=== PATIENT | female | born 1955 | race Caucasian/White ===

== ENCOUNTER 2021-02-21 08:10 | Outpatient (CLI) | payer MEDICARE, SELFPAY ==
--- NOTE | 2021-02-21 08:17 | MM_ITS ---
WS: [id number] Bilateral screening digital mammogram, 02/21/2021 Clinical Data: SCREENING Comparison: 07/21/2019, 12/07/2016. Findings: The breast parenchymal pattern shows fibroglandular tissue No spiculated masses or clustered calcific ations are seen. There are no secondary signs of carcinoma. Bilateral augmentation mammoplasty implan ts are intact. MM/[id number] Impression: 1. Negative bilateral mammogram unchanged. 2. Recommend annual screening mammograms. BIRADS: 2-Benign FOLLOW UP: 1 Year Follow-up The CAD inventory checker was used.
== END 2021-02-21 08:11 | disposition home or self-care (01) ==
LOC: RADSHAW 08:16
PROVIDERS: Family Provider Nurse Practitioner Family; PCP Nurse Practitioner Family; Visit Provider Nurse Practitioner Family
DX: Z12.31 Encounter for screening mammogram for malignant neoplasm of breast (principal)
CPT/HCPCS: 77067

== ENCOUNTER 2021-06-18 05:39 | Outpatient (CLI) | payer MEDICARE, SELFPAY ==
[2021-06-18 05:58] VITALS: BP 146/87; PULSE 75; RESP 19; O2SAT 97; BMI 28.1
[2021-06-18 06:40] VITALS: BP 159/87; PULSE 81; RESP 22; O2SAT 97
[2021-06-18 07:53] VITALS: BP 127/77; PULSE 76; RESP 19; O2SAT 95
== END 2021-06-18 05:40 | disposition home or self-care (01) ==
LOC: ER 05:42
PROVIDERS: PCP Nurse Practitioner Family; Visit Provider Internal Medicine
DX: U07.1 COVID-19 (principal)
CPT/HCPCS: 96365

== ENCOUNTER 2022-03-19 11:06 | Outpatient (CLI) | payer MEDICARE, MEDICAID, SELFPAY ==
--- NOTE | 2022-03-19 11:20 | XRR_ITS ---
PROCEDURE INFORMATION: Exam: XR Chest Exam date and time: 03/19/2022 11:26 AM Age: 66 years old Clinical indication: Prior surgery; Surgery type: Breast implants; Patient HX: --cough for 3 weeks - dry cough, HX of bronchitis TECHNIQUE: Imaging protocol: XR of the chest. Views: 2 views. COMPARISON: CR Chest 1 [place] [id number] 01/11/2017 12:16 PM FINDINGS: Lungs: There is mild platelike atelectasis in the left lung. Otherwise lungs are clear. Pleural spaces: Unremarkable. No pleural effusion. No pneumothorax. Heart/Mediastinum: Unremarkable. No cardiomegaly. Bones/joints: Unremarkable. XR/XR chest 2V* [id number] IMPRESSION: Mild platelike atelectasis in the left lung. No other acute abnormality.
== END 2022-03-19 11:07 | disposition home or self-care (01) ==
LOC: RAD 11:12
PROVIDERS: PCP Nurse Practitioner Family; Visit Provider Nurse Practitioner Family
DX: R05.9 Cough, unspecified (principal); J98.11 Atelectasis
CPT/HCPCS: 71046

== ENCOUNTER 2022-07-24 08:40 | Outpatient (CLI) | payer MEDICARE, MEDICAID, SELFPAY ==
--- NOTE | 2022-07-24 08:45 | MM_ITS ---
WS: [id number] DIAGNOSTIC BILATERAL DIGITAL BREAST TOMOSYNTHESIS MAMMOGRAPHY WITH Daiana views and CAD LEFT breast ultrasound, limited. HISTORY: LT BREAST LUMP x 2 COMPARISON: 02/21/2021 and 07/21/2019 TECHNIQUE: Bilateral implant displacement views craniocaudad, mediolateral oblique, and mediolateral views are submitted with tomosynthesis and SM. Spot compression LEFT CC. Computer aided detection uti lized. Breast composition: There are scattered areas of fibroglandular density. Small contracted partially c alcified implants. Palpable markers 11:00 and 12:00 with no underlying abnormality identified. There are a few benign calcifications in each breast. No areas of distortion. LEFT breast ultrasound, limited. Ultrasound directed to 11 and 12:00 by the patient in the palpable areas. No mass or underlying abnor mality. No cystic or solid changes or distortion. MM/[place] [id number] IMPRESSION: BI-RADS: 2-Benign FOLLOW UP: 1 Year Follow-up
== END 2022-07-24 08:41 | disposition home or self-care (01) ==
LOC: RAD 08:40
PROVIDERS: PCP Nurse Practitioner Family; Visit Provider Nurse Practitioner Family
DX: N63.20 Unspecified lump in the left breast, unspecified quadrant (principal)
CPT/HCPCS: 76642; 77062

== ENCOUNTER 2023-05-20 14:14 | Outpatient (CLI) | payer MEDICARE, MEDICAID, SELFPAY ==
--- NOTE | 2023-05-20 14:35 | XRR_ITS ---
PROCEDURE INFORMATION: Exam: XR Right Femur Exam date and time: 05/20/2023 2:37 PM Age: 67 years old Clinical indication: Pain; Thigh; Right; Additional info: Leg pain, right TECHNIQUE: Imaging protocol: Radiologic exam of the right femur. Views: 2 views. COMPARISON: No relevant prior studies available. FINDINGS: Bones/joints: Unremarkable. No acute fracture. Soft tissues: Unremarkable. XR/XR femur RT min 2V* [id number] IMPRESSION: No acute findings.
== END 2023-05-20 14:15 | disposition home or self-care (01) ==
LOC: RAD 14:23
PROVIDERS: PCP Nurse Practitioner Family; Visit Provider Nurse Practitioner Family
DX: M79.604 Pain in right leg (principal)
CPT/HCPCS: 73552

== ENCOUNTER 2024-02-16 14:09 | Emergency (ER) | payer MEDICARE, SELFPAY ==
[2024-02-16] VITALS (48 sets, daily range): BP systolic 142–214; BP diastolic 70–104; PULSE 56–72; RESP 14–28; TEMP 36.6; O2SAT 85–100; BMI 27.8
--- NOTE | 2024-02-16 14:11 | XR_ITS ---
WS: [id number] Examination: XR chest 1V portable [id number] Reason for Exam: cp Date: February 16, 2024 Comparison: March 19, 2022 Findings: The heart is not grossly enlarged. There is no pulmonary edema. Increased markings at the bases are again noted. This may represent scarring. Impression: Minimal increased markings at the bases are again noted. This may represent scar There is no failure.
--- NOTE | 2024-02-16 14:12 | ECG_ITS ---
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 Measurements Intervals [place] Rate: 67 P: 56 CA: 159 QRS: 11 QRSD: 84 T: 30 QT: 406 QTc: 431 Interpretive Statements SINUS RHYTHM LOW QRS VOLTAGE IN PRECORDIAL LEADS [QRS DEFLECTION < 1.0 mV IN CHEST LEADS] Compared to ECG 01/11/2017 12:01:23 No significant changes Electronically Signed On 02-16-2024 15:25:50 CDT by Mumtaz Villar M.D. [id number]
--- NOTE | 2024-02-16 14:23 | ED_ITS ---
Documented by User: Boni Cuevas DO 02/18/24 06:07 HPI - Chest Pain 2 General: Chief Complaint: Chest Pain Stated Complaint: dr barrera, on and off chest pain Time Seen by Provider: 02/16/24 14:20 Source: patient Mode of arrival: ambulatory History of Present Illness: 68-year-old female presents emergency ro om complaining of intermittent episodes of blood pressure elevation. She will get chest discomfort associated with this as well as scotoma. They will last for about 30 minutes at a time resolved spontaneously she has not done anything anything that aggravates or relieves it. She is on Zetia for triglycerides. She has no known history of coronary artery disease she is not currently having chest pain at this time. Patient presents to the ER with 2 episodes of chest pain in the last couple days and elevation in her blood pressure. This pain lasted for about 30 minutes she took an 81 mg aspirin and times then the pain away on its own. Patient went to her PCPs office earlier today for an evaluation and they do not take her insurance anymore so they sent her over here. Patient denies chest pain at this time. MD complaint: chest pain Timing of current episode: episodic Prior episodes: Yes Pain location: substernal and epigastric Pain radiation: none Severity: mild Quality: tightness and aching Relieving factors: nothing Exacerbating factors: nothing Associated symptoms: Deny abdominal pain, diaphoresis, dyspnea, fever(s), leg edema, nausea, palpitations, sense of impending doom, syncope or vomiting Treatment prior to arrival: aspirin Review of Systems 2 Const: Denies: fever(s), chills or diaphoresis Card: Reports: chest pain; Denies: palpitations, edema, swelling of feet/ankles or syncope Resp: Denies: dyspnea GI: Denies: abdominal pain, nausea or vomiting : Denies: dysuria, urinary frequency or urinary urgency Musc: Denies: neck pain or back pain Skin/Breast: Denies: rash Physical Exam 2 Const: COMMON NORMALS: no acute distress GENERAL APPEARANCE: cooperative and comfortable ORIENTATION/CONSCIOUSNESS: Yes awake, Yes oriented to person, Yes oriented to place and Yes oriented to time HENMT: COMMON NORMALS: normocephalic, atraumatic and hearing grossly normal bilaterally HEAD & SCALP: normocephalic and atraumatic Resp: COMMON NORMALS: normal respiratory effort, No retractions, No use of accessory muscles and clear to auscultation bilaterally AUSCULTATION: clear to auscultation bilaterally Cardio: COMMON NORMALS: regular rate, regular rhythm and No murmurs present (Cardio) RATE: regular rate RHYTHM: regular rhythm GI: COMMON NORMALS: Soft to palpation and No hepatosplenomegaly present A USCULTATION: Yes normoactive bowel sounds PALPATION: Yes Soft to palpation, No Tenderness to palpation present (GI), No Guarding due to palpation present (GI) and Yes No hepatosplenomegaly present Extremity: COMMON NORMALS: normal to inspection, capillary refill normal, no clubbing, cyanosis or edema, no calf tenderness and no pedal edema Neuro: SENSORIUM/ORIENTATION: Yes oriented to person, Yes oriented to place and Yes oriented to time Skin: COMMON NORMALS: no rashes or lesions noted GENERAL SKIN EXAM: no rashes or lesions noted Course 2 Vital Signs: Vital signs: Vital Signs Temperature 97.9 F 02/16/24 14:13 Pulse Rate 72 02/16/24 18:35 Respiratory Rate 17 02/16/24 18:35 Blood Pressure 142/80 02/16/24 18:40 Pulse Oximetry 95 02/16/24 18:35 Oxygen Delivery Me thod Room Air 02/16/24 18:35 MDM - Chest Pain Medical Decision Making Initial EKG shows normal sinus rhythm a lot of artifact at the baseline no acute ST changes rate is normal at 87. Care signed out to Dr. Alexander at change of shift. See final notes for diagnosis and disposition. Labs pending Care transferred at shift change. Lab work reviewed EKGs reviewed discussed with the patient. Patient will be discharged and set up for an outpatient stress test as well as started on Imdur. Patient will follow-up with her primary care practitioner within next 7 to 10 days for further evaluation and treatment as needed. Medical Records I reviewed the patient's medical records. Lab Data I reviewed the patient's lab results. 02/16/24 14:44 02/16/24 14:44 Laboratory Results WBC 8.31 10^3/uL (3.29-11.43) 02/16/24 14:44 RBC 4.37 10^6/uL (3.85-5.65) 02/16/24 14:44 Hgb 13.90 g/dL (11.27-16.99) 02/16/24 14:44 Hct 42.0 % (36-47) 02/16/24 14:44 MCV 96.1 fl (85-98) 02/16/24 14:44 MCH 31.8 pg (27-33) 02/16/24 14:44 MCHC 33.1 g/dL (30-55) 02/16/24 14:44 RDW 15.1 % (12.1-15.1) 02/16/24 14:44 Plt Count 383 10^3/cmm (157-399) 02/16/24 14:44 MPV 9.9 fL (7.4-10.4) 02/16/24 14:44 Neut % (Auto) 61.4 % 02/16/24 14:44 Lymph % (Auto) 28.6 % 02/16/24 14:44 [place] % (Auto) 6.6 % 02/16/24 14:44 Eos % (Auto) 2.5 % 02/16/24 14:44 Baso % (Auto) 0.7 % 02/16/24 14:44 Neut # (Auto) 5.09 10^3/uL (1.8-7.7) 02/16/24 14:44 Lymph # (Auto) 2.4 10^3/uL (0.8-4.8) 02/16/24 14:44 [place] # (Auto) 0.6 10^3/uL (0.2-0.9) 02/16/24 14:44 Eos # (Auto) 0.2 10^3/uL (0.0-0.8) 02/16/24 14:44 Baso # (Auto) 0.1 10^3/uL (0.0-0.1) 02/16/24 14:44 Nucleated RBC % (auto) 0 % 02/16/24 14:44 Nucleated RBCs # 0.0 /100WBC 02/16/24 14:44 PT 12.70 SECONDS (12.1-14.9) 02/16/24 14:44 INR 0.93 (0.8-1.2) 02/16/24 14:44 D-Dimer 0.51 ug/mLFEU (0-0.59) 02/16/24 14:44 Sodium 142 mmol/L (136-145) 02/16/24 14:44 Potassium 4.3 mmol/L (3.5-5.1) 02/16/24 14:44 Chloride 106 mmol/L (98-107) 02/16/24 14:44 Carbon Dioxide 24 mmol/L (22-29) 02/16/24 14:44 Anion Gap 16.3 (5-19) 02/16/24 14:44 BUN 14 mg/dL (8-23) 02/16/24 14:44 Creatinine 0.7 mg/dL (0.5-0.9) 02/16/24 14:44 GFR Calculation 82.7 mL/min (90-130) L 02/16/24 14:44 Glucose 101 mg/dL (65-115) 02/16/24 14:44 Calculated Osmolality 295 mOsm/kg (285-295) 02/16/24 14:44 Calcium 10.1 mg/dL (8.5-10.5) 02/16/24 14:44 Total Bilirubin 0.4 mg/dL (0.15-1.2) 02/16/24 14:44 AST 17 U/L (0-32) 02/16/24 14:44 ALT 8 U/L (0-33) 02/16/24 14:44 Alkaline Phosphatase 60 U/L (35-105) 02/16/24 14:44 Troponin T Baseline 9 ng/L (0-10) 02/16/24 14:44 Troponin T 120 Minute 6.00 ng/L (0-10) 02/16/24 16:50 Delta Troponin T -3.00 ABS# (0-10) L 02/16/24 16:50 Total Protein 6.9 g/dL (6.6-8.7) 02/16/24 14:44 Albumin 4.6 g/dL (3.5-5.2) 02/16/24 14:44 Globulin 2.3 g/dL (1.3-4.6) 02/16/24 14:44 Lipase 18 U/L (13-60) 02/16/24 14:44 Discharge Plan Discharge Patient Disposition: Home Clinical Impression: Chest pain Qualifiers: Chest pain type: unspecified Qualified Code(s): R07.9 - Chest pain, unspecified Hypertension Qualifiers: Hypertension type: unspecified Qualified Code(s): I10 - Essential (primary) hypertension Condition: Stable Prescriptions: New isosorbide mononitrate 30 mg tablet extended release 24 hr 30 mg PO DAILY Qty: 30 0RF No Action oxybutynin chloride 5 mg tablet 5 mg PO TID hydroxyzine HCl 10 mg tablet 10 mg PO TID PRN (Reason: Anxiety) ezetimibe 10 mg tablet 10 mg PO DAILY fenofibrate nanocrystallized 145 mg tablet 145 mg PO DAILY vilazodone 10 mg tablet 10 mg PO DAILY vilazodone 20 mg tablet 20 mg PO DAILY Trelegy Ellipta 100-62.5-25 mcg blister with device 1 ea INHALATION PRN PRN (Reason: Shortness Of Breath Or Wheezing) Vitamin D3 25 mcg (1,000 unit) Tablet 25 mcg PO DAILY Discharge Orders: Discharge ED (Routine); Ordered 02/16/24 Ordered By: Morales lAexander Referrals: Patricia Rico MANAGER LAN [Primary Care Provider] - 1 week Patient Instructions: Chest Pain (ED), Hypertension (ED) Activity Restrictions/Additional Instructions: Your lab work come back normal. You will be set up for an outpatient stress test for further evaluation of your heart. You will be placed on Imdur. Please follow-up with your family practitioner in the next 7 to 10 days for further evaluation and treatment as needed. If chest pain returns please feel free to return to the ER. Coding Level of Care Code ED Hand Lens Polisher for Chg Fwd Documented by User: Morales Alexander DO 02/16/24 19:30 HPI - Chest Pain 2 General: Chief Complaint: Chest Pain Stated Complaint: dr barrera, on and off chest pain Time Seen by Provider: 02/16/24 14:20 History of Present Illness: Patient presents to the ER with 2 episodes of chest pain in the last couple days and elevation in her blood pressure. This pain lasted for about 30 minutes she took an 81 mg aspirin and times then the pain away on its own. Patient went to her PCPs office earlier today for an evaluation and they do not take her insurance anymore so they sent her over here. Patient denies chest pain at this time. Course 2 Vital Signs: Vital signs: Vital Signs Temperature 97.9 F 02/16/24 14:13 Pulse Rate 72 02/16/24 18:35 Respiratory Rate 17 02/16/24 18:35 Blood Pressure 142/80 02/16/24 18:40 Pulse Oximetry 95 02/16/24 18:35 Oxygen Delivery Me thod Room Air 02/16/24 18:35 MDM - Chest Pain Medical Decision Making Care transferred at shift change. Lab work reviewed EKGs reviewed discussed with the patient. Patient will be discharged and set up for an outpatient stress test as well as started on Imdur. Patient will follow-up with her primary care practitioner within next 7 to 10 days for further evaluation and treatment as needed. Lab Data 02/16/24 14:44 02/16/24 14:44 Laboratory Results WBC 8.31 10^3/uL (3.29-11.43) 02/16/24 14:44 RBC 4.37 10^6/uL (3.85-5.65) 02/16/24 14:44 Hgb 13.90 g/dL (11.27-16.99) 02/16/24 14:44 Hct 42.0 % (36-47) 02/16/24 14:44 MCV 96.1 fl (85-98) 02/16/24 14:44 MCH 31.8 pg (27-33) 02/16/24 14:44 MCHC 33.1 g/dL (30-55) 02/16/24 14:44 RDW 15.1 % (12.1-15.1) 02/16/24 14:44 Plt Count 383 10^3/cmm (157-399) 02/16/24 14:44 MPV 9.9 fL (7.4-10.4) 02/16/24 14:44 Neut % (Auto) 61.4 % 02/16/24 14:44 Lymph % (Auto) 28.6 % 02/16/24 14:44 [place] % (Auto) 6.6 % 02/16/24 14:44 Eos % (Auto) 2.5 % 02/16/24 14:44 Baso % (Auto) 0.7 % 02/16/24 14:44 Neut # (Auto) 5.09 10^3/uL (1.8-7.7) 02/16/24 14:44 Lymph # (Auto) 2.4 10^3/uL (0.8-4.8) 02/16/24 14:44 [place] # (Auto) 0.6 10^3/uL (0.2-0.9) 02/16/24 14:44 Eos # (Auto) 0.2 10^3/uL (0.0-0.8) 02/16/24 14:44 Baso # (Auto) 0.1 10^3/uL (0.0-0.1) 02/16/24 14:44 Nucleated RBC % (auto) 0 % 02/16/24 14:44 Nucleated RBCs # 0.0 /100WBC 02/16/24 14:44 PT 12.70 SECONDS (12.1-14.9) 02/16/24 14:44 INR 0.93 (0.8-1.2) 02/16/24 14:44 D-Dimer 0.51 ug/mLFEU (0-0.59) 02/16/24 14:44 Sodium 142 mmol/L (136-145) 02/16/24 14:44 Potassium 4.3 mmol/L (3.5-5.1) 02/16/24 14:44 Chloride 106 mmol/L (98-107) 02/16/24 14:44 Carbon Dioxide 24 mmol/L (22-29) 02/16/24 14:44 Anion Gap 16.3 (5-19) 02/16/24 14:44 BUN 14 mg/dL (8-23) 02/16/24 14:44 Creatinine 0.7 mg/dL (0.5-0.9) 02/16/24 14:44 GFR Calculation 82.7 mL/min (90-130) L 02/16/24 14:44 Glucose 101 mg/dL (65-115) 02/16/24 14:44 Calculated Osmolality 295 mOsm/kg (285-295) 02/16/24 14:44 Calcium 10.1 mg/dL (8.5-10.5) 02/16/24 14:44 Total Bilirubin 0.4 mg/dL (0.15-1.2) 02/16/24 14:44 AST 17 U/L (0-32) 02/16/24 14:44 ALT 8 U/L (0-33) 02/16/24 14:44 Alkaline Phosphatase 60 U/L (35-105) 02/16/24 14:44 Troponin T Baseline 9 ng/L (0-10) 02/16/24 14:44 Troponin T 120 Minute 6.00 ng/L (0-10) 02/16/24 16:50 Delta Troponin T -3.00 ABS# (0-10) L 02/16/24 16:50 Total Protein 6.9 g/dL (6.6-8.7) 02/16/24 14:44 Albumin 4.6 g/dL (3.5-5.2) 02/16/24 14:44 Globulin 2.3 g/dL (1.3-4.6) 02/16/24 14:44 Lipase 18 U/L (13-60) 02/16/24 14:44 All radiology interpretation(s) finalized by discharge Discharge Plan Discharge Patient Disposition: Home Clinical Impression: Chest pain Qualifiers: Chest pain type: unspecified Qualified Code(s): R07.9 - Chest pain, unspecified Hypertension Qualifiers: Hypertension type: unspecified Qualified Code(s): I10 - Essential (primary) hypertension Condition: Stable Prescriptions: New isosorbide mononitrate 30 mg tablet extended release 24 hr 30 mg PO DAILY Qty: 30 0RF No Action oxybutynin chloride 5 mg tablet 5 mg PO TID hydroxyzine HCl 10 mg tablet 10 mg PO TID PRN (Reason: Anxiety) ezetimibe 10 mg tablet 10 mg PO DAILY fenofibrate nanocrystallized 145 mg tablet 145 mg PO DAILY vilazodone 10 mg tablet 10 mg PO DAILY vilazodone 20 mg tablet 20 mg PO DAILY Trelegy Ellipta 100-62.5-25 mcg blister with device 1 ea INHALATION PRN PRN (Reason: Shortness Of Breath Or Wheezing) Vitamin D3 25 mcg (1,000 unit) Tablet 25 mcg PO DAILY Discharge Orders: Discharge ED (Routine); Ordered 02/16/24 Ordered By: Morales Alexander Referrals: Patricia Rico MANAGER [facility] [Primary Care Provider] - 1 week Patient Instructions: Chest Pain (ED), Hypertension (ED) Activity Restrictions/Additional Instructions: Your lab work come back normal. You will be set up for an outpatient stress test for further evaluation of your heart. You will be placed on Imdur. Please follow-up with your family practitioner in the next 7 to 10 days for further evaluation and treatment as needed. If chest pain returns please feel free to return to the ER. Coding Level of Care Code ED Hand Lens Polisher for Arlene Fields
[2024-02-16 14:54] LABS: Basophils # 0.1 10^3/uL (0.0-0.1); Basophils % 0.7 %; Eosinophils # 0.2 10^3/uL (0.0-0.8); Eosinophils % 2.5 %; Lymphocytes # 2.4 10^3/uL (0.8-4.8); Lymphocytes % 28.6 %; Mean Corpuscular HGB Conc 33.1 g/dL (30-55); Mean Corpuscular Hemoglobin 31.8 pg (27-33); Mean Corpuscular Volume 96.1 fl (85-98); Mean Platelet Volume 9.9 fL (7.4-10.4); Monocytes # 0.6 10^3/uL (0.2-0.9); Monocytes % 6.6 %; Neutrophils # 5.09 10^3/uL (1.8-7.7); Neutrophils % 61.4 %; Nucleated Red Blood Cells % 0 %; Platelet Count 383 10^3/cmm (157-399); Red Blood Count 4.37 10^6/uL (3.85-5.65); Red Cell Distribution Width 15.1 % (12.1-15.1); White Blood Count 8.31 10^3/uL (3.29-11.43)
[2024-02-16 15:10] LABS: INR 0.93 (0.8-1.2)
[2024-02-16 15:15] LABS: Alanine Aminotransferase 8 U/L (0-33); Albumin Level 4.6 g/dL (3.5-5.2); Alkaline Phosphatase 60 U/L (35-105); Anion Gap 16.3 (5-19); Aspartate Amino Transferase 17 U/L (0-32); Blood Urea Nitrogen 14 mg/dL (8-23); Calcium 10.1 mg/dL (8.5-10.5); Carbon Dioxide 24 mmol/L (22-29); Chloride 106 mmol/L (98-107); Creatinine Clr Calc Pharmacy 71.5401; Globulin 2.3 g/dL (1.3-4.6); Glomerular Filtration Rate 82.7 mL/min (90-130); Glucose 101 mg/dL (65-115); Lipase 18 U/L (13-60); Osmolality Calculated 295 mOsm/kg (285-295); Potassium 4.3 mmol/L (3.5-5.1); Sodium 142 mmol/L (136-145); Total Bilirubin 0.4 mg/dL (0.15-1.2); Total Protein 6.9 g/dL (6.6-8.7)
[2024-02-16 15:16] LABS: Troponin(5th) Baseline 9 ng/L (0-10)
[2024-02-16 15:42] LABS: D Dimer 0.51 ug/mLFEU (0-0.59)
--- NOTE | 2024-02-16 16:05 | ECG_ITS ---
[facility] Test Date: 2024-02-16 Pat Name: Marla Myers Department: Room: Gender: Female Manager Client Service: : 1955 Requested By: Celena Hickey Order Number: [id number] Sommer MD: Mumtaz Villar M.D. Measurements Intervals [place] Rate: 48 P: 132 SD: 168 QRS: 31 QRSD: 86 T: 97 QT: 450 QTc: 404 Interpretive Statements SINUS BRADYCARDIA POSSIBLE LEFT ATRIAL ENLARGEMENT [-0.1mV P-WAVE IN V1/V2] LOW QRS VOLTAGE [QRS DEFLECTION < 0.5/1.0 mV IN LIMB/CHEST LEADS] ABNORMAL QRS-T ANGLE [QRS-T AXIS DIFFERENCE > 60] Compared to ECG 02/16/2024 14:24:28 Sinus rhythm no longer present Electronically Signed On 02-16-2024 22:12:23 CDT by Mumtaz Villar M.D. [id number]
[2024-02-16] MEDS: isosorbide mononitrate ER 30 mg Tablet PO (17:04)
== END 2024-02-16 18:43 | disposition home or self-care (01) ==
PROVIDERS: Emergency Medicine; Family Medicine; Emergency Provider Emergency Medicine; PCP Nurse Practitioner Family
DX: R07.9 Chest pain, unspecified (principal); I10 Essential (primary) hypertension
CPT/HCPCS: 36415; 71045; 80053; 83690; 84484; 85025; 85378; 85610; 93005; 99285

== ENCOUNTER 2024-03-14 10:01 | Outpatient (CLI) | payer MEDICARE, SELFPAY ==
[2024-03-14 10:12] VITALS: BMI 27.3
--- NOTE | 2024-03-14 10:12 | ECG_ITS ---
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 Interpretive Statements NAME OF STUDY: LEXISCAN SESTAMIBI STRESS TEST INDICATION: [Chest Pain] Procedure: At the baseline, the blood pressure was 176/85 mmHg with a heart rate of 59 bpm. The electrocardiogram showed normal sinus rhythm, normal axis with normal ST and T's. The Lexiscan was infused over a period of 20 seconds. A total of 0.4 mg of Lexiscan was infused. The stress phase was continued for a total of 5 minutes. Heart rate was at the end of stress phase was 70 bpm and a blood pressure of 174/83 mmHg. The EKG at the peak infusion revealed normal sinus rhythm with no significant ST-T wave changes. PVCs are seen Sestamibi was injected 20 seconds after the Lexiscan infusion. Blood pressure at the end of recovery phase was 183/81 mmHg with a heart rate of 77 bpm. Conclusion: 1. Normal EKG response to Lexiscan infusion 2. No Lexiscan induced chest pain or cardiac arrhythmia. 3. Normal blood pressure and heart rate response. 4. Sestamibi/sestamibi perfusion scan pending; see separate report. Electronically Signed On 04-03-2024 18:33:44 CDT by Mumtaz Villar M.D. [id number]
--- NOTE | 2024-03-14 10:12 | NMCV_ITS ---
NM jono perf SPECT r/s* [id number] Marla Myers Age: 68 Gender: F : 1955 Exam Date: 03/14/2024 11:42 Ordering Phys: Morales Alexander DO Technologist: AURORA Barrientos Exam Location: [facility] Indications: CHEST PAIN, HYPERTENSION STRESS TEST Please see separate stress test report in [facility] for full findings IMAGE PROTOCOL Rest/Stress 1 Lexiscan Day Radiopharmaceutical Dose (mCi) Administration Site Administered by Rest: Tc-99m 10.5 IV AURORA Brown Sestamibi Stress:Tc-99m 32.2 IV AURORA Brown Sestamibi Rest: 14-Mar-2024 60 Discovery 630 Stress: 14-Mar-2024 30 Discovery 630 0.4mg Lexiscan. Images obtained in supine and prone position. SPECT RESULTS Technical Quality: Excellent Raw Data Analysis: Normal Image Corrections: No attenuation or motion correction applied Summed Stress Score: 0 Summed Rest Score: 0 Summed Difference Score: 0 PERFUSION FINDINGS SPECT images demonstrate homogeneous tracer distribution throughout the myocardium. FUNCTIONAL RESULTS (calculated via Gated SPECT) Stress Image LV EF (%): 83 Stress EDV (mL):70 TID: 1.09 Stress ESV (mL):12 FUNCTIONAL FINDINGS: There is normal left ventricular systolic function. IMPRESSIONS 1. Normal myocardial perfusion imaging with no evidence of ischemia 2. LV systolic function is normal Mumtaz Villar MD (Electronically Signed) Final Date: 16 Mar 2024 10:56 S
[2024-03-14] MEDS: regadenoson 0.4 Mg/5 ml Syringe 0.400000000000000022 MG IVP (12:40)
[2024-03-14 12:45] VITALS: BP 179/84; PULSE 68
== END 2024-03-14 10:02 | disposition home or self-care (01) ==
PROVIDERS: PCP Nurse Practitioner Family; Visit Provider Emergency Medicine
DX: I20.9 Angina pectoris, unspecified (principal); I10 Essential (primary) hypertension; R07.9 Chest pain, unspecified
CPT/HCPCS: 36415; 78452; 93017; 96374; A9500; J2785

== ENCOUNTER 2024-04-24 14:36 | Outpatient (CLI) | payer MEDICARE, SELFPAY ==
--- NOTE | 2024-04-24 14:49 | MM_ITS ---
WS: [id number] BILATERAL 3D TOMOSYNTHESIS DIGITAL SCREENING MAMMOGRAPHY WITH CAD CLINICAL INFORMATION: SCREENING HISTORY: Screening mammogram. No current complaints. COMPARISON: 2021 TECHNIQUE: Bilateral CC and MLO views. FINDINGS: Stable calcified breast implants. Scattered fibroglandular densities bilaterally. No suspicious focal mass, asymmetry, calcifications, or architectural distortion. No evidence of malignancy. Vascular calcification. Lucent centered calci fications. MM/[place] [id number] IMPRESSION: BI-RADS: 2-Benign FOLLOW UP: 1 Year Follow-up Recommend return to annual screening mammography.
== END 2024-04-24 14:37 | disposition home or self-care (01) ==
LOC: RAD 14:38
PROVIDERS: PCP Nurse Practitioner Family; Visit Provider Nurse Practitioner Family
DX: Z12.31 Encounter for screening mammogram for malignant neoplasm of breast (principal); R92.323 Mammographic fibroglandular density, bilateral breasts; R92.1 Mammographic calcification found on diagnostic imaging of breast
CPT/HCPCS: 77063; 77067